=== PATIENT | female | born 1985 | race Caucasian/White ===

== ENCOUNTER 2019-01-15 21:16 | Emergency (ER) | payer BC ==
[2019-01-15] MEDS ORDERED: TETANUS/DIPHTHERIA TOXOID [ADULT] 0.5 ML VIAL IM ONE (21:30)
[2019-01-15] MEDS ORDERED: BACITRACIN 28.4 GM OINT TP ONE (22:44)
== END 2019-01-15 22:48 | disposition home or self-care (01) ==
LOC: EDH 21:16
DX: S93.491A Sprain of other ligament of right ankle, initial encounter (principal); S80.212A Abrasion, left knee, initial encounter; J45.909 Unspecified asthma, uncomplicated; Z90.89 Acquired absence of other organs; W18.39XA Other fall on same level, initial encounter; Y93.89 Activity, other specified; Y92.89 Other specified places as the place of occurrence of the external cause; Y99.8 Other external cause status
CPT/HCPCS: 73562; 73610; 90471; 90714